=== PATIENT | male | born 1990 | race African-American/Black ===

== ENCOUNTER 2022-09-01 06:54 | Outpatient (CLI) | payer OTHER ==
--- NOTE | 2022-09-03 11:22 | MRI Report ---
PROCEDURE: HAND WO - LT INDICATIONS: LEFT FINGERS PAIN TECHNIQUE: Noncontrast coronal T1 spin echo and T2 fast spin echo with fat saturation, axial proton density fast spin echo and T2 fast spin echo with fat saturation, sagittal T1 spin echo and STIR through the hand and fingers. COMPARISON: None. FINDINGS: Image quality: Excellent. Bones: The bones are normally aligned, without marrow contusions or fractures. No intra-osseous les ions. First carpometacarpal joint: On sagittal images, the dorsal radial ligament and posterior oblique li gament appear thickened with intrasubstance T2 hyperintense signal. The intermetacarpal ligament bet ween the 1st and 2nd metacarpal bases also appears intact. On the volar aspect, the deep and superfi cial layers of the anterior oblique ligament appear intact. Interphalangeal joint(s): The accessory and proper collateral ligaments appear intact. The volar pl ate demonstrates normal morphology. The extensor central slips appear intact on sagittal images. Metacarpophalangeal joint(s): The accessory and proper collateral ligaments appear intact, as well a s the volar plate and adjacent deep transverse metacarpal ligaments. The sagittal bands of the exten sor rogers appear normal. Extensor apparatus: The central slips insert normally on the middle phalangeal base. The conjoint a nd terminal tendons insert normally on the distal phalangeal bases. More proximal portions of the ex tensor tendons also appear normal. Flexor apparatus: The flexor digitorum superficialis and profundus tendons both appear intact. All annular and cruciform pulleys appear intact, without adjacent soft tissue edema. Soft tissues: Visualized muscles demonstrate normal bulk and internal signal. No intramuscular mass es identified. No ganglion cysts. IMPRESSION: 1. Sprain/low to moderate grade partial-thickness tear involving dorsal radioulnar ligament and poste rior oblique ligament of first CMC joint. No full-thickness ligament rupture. Bohler ligaments are in tact. 2. No marrow edema. No fracture or dislocation. No suspicious intraosseous lesion. 3. Extensor and flexor tendons are within normal limits. Reviewed by: Chino Booth MD on 09/03/2022 11:21 AM PDT Approved by: Chino Booth MD on 09/03/2022 11:21 AM PDT Station ID: [id number]
== END 2022-09-01 06:55 | disposition home or self-care (01) ==
LOC: DI 06:54
PROVIDERS: ATTEND Student in an Organized Health Care Education/Training Program
DX: S63.8X2A Sprain of other part of left wrist and hand, initial encounter (principal)